=== PATIENT | male | born 1965 | race Caucasian/White ===

== ENCOUNTER → 2016-11-15 | Outpatient (CLI) | payer OTHER ==
[~2016-11-15] MED LIST: ACETAMINOPHEN-H1 TA2 PO; ASPIRIN EC325 MG PO; ASPIRIN325 MG PO; ATIVAN0.5 MG PO; BACTRIM DS 8001 TA1 PO; CARBIDOPA/LEVOD1 TA5 PO; CLINDAMYCIN HC300 MG PO; DILTIAZEM60 MG PO; LOPRESSOR100 M1 PO; METOPROLOL100 MG PO; METOPROLOL25 MG PO; METOPROLOL50 MG PO; NO HOME MEDS; PT DOES NOT KNOW; SERTRALINE HYDR25 MG PO; TYLENOL500 MG PO; VICODIN 5/500 505 MG PO; XARE15TA PO; XARELTO20 M1 PO; ZITHROMAX TRI-500 M1 PO; Zofran4 MG PO
[2016-11-15 16:19] LABS: HEMATOCRIT 53.2 % (42.0-52.0); HEMOGLOBIN 17.3 g/dl (14.0-18.0); MEAN CELL VOLUME 99.1 fl (80.0-94.0); MEAN CORPUSCULAR HGB 32.2 pg (27.0-31.0); MEAN CORPUSCULAR HGB CONC 32.5 g/dl (33.0-37.0); MEAN PLATELET VOLUME 9.3 fl (9.6-12.3); RED BLOOD COUNT 5.37 10*6/uL (4.50-5.90); RED CELL DISTRI WIDTH 14.3 % (0-14.5); WHITE BLOOD COUNT 8.8 10*3/uL (4.8-10.8)
== END | disposition home or self-care (01) ==
LOC: CARD 10-30 14:00 → LAB 15:42 → CARD 16:00
PROVIDERS: Internal Medicine
DX: I48.1 Persistent atrial fibrillation (principal); D75.1 Secondary polycythemia

== ENCOUNTER → 2016-12-17 | Outpatient (CLI) | payer OTHER | END | disposition home or self-care (01) | LOC: PHLEB 09:06 | DX: D75.1 Secondary polycythemia (principal) ==

== ENCOUNTER → 2017-01-30 | Outpatient (CLI) | payer OTHER ==
[2017-01-30 18:16] LABS: BASO # 0.1 10*3/uL (0.0-0.1); BASO % 0.6 % (0.0-1.0); EOS # 0.2 10*3/uL (0.0-0.4); EOS % 2.5 % (1.0-4.0); HEMATOCRIT 54.7 % (42.0-52.0); HEMOGLOBIN 17.5 g/dl (14.0-18.0); IG # 0.1 10*3/uL (0.0-0.1); LYMPH # 2.6 10*3/uL (1.3-4.4); LYMPH % 26.9 % (27.0-41.0); MEAN CELL VOLUME 98.9 fl (80.0-94.0); MEAN CORPUSCULAR HGB 31.6 pg (27.0-31.0); MEAN PLATELET VOLUME 9.2 fl (9.6-12.3); MONO # 1.2 10*3/uL (0.1-1.0); MONO % 12.4 % (3.0-9.0); NEUT # 5.4 10*3/uL (2.3-7.9); NEUT % 56.7 % (47.0-73.0); PLATELET COUNT AUTOMATED 222 10*3/uL (130-400); RED BLOOD COUNT 5.53 10*6/uL (4.50-5.90); RED CELL DISTRI WIDTH 15.7 % (0-14.5); WHITE BLOOD COUNT 9.6 10*3/uL (4.8-10.8)
[2017-01-30 18:31] LABS: ALBUMIN 3.5 gm/dl (3.1-4.5); ALKALINE PHOSPHATASE 74 U/L (45-117); BILIRUBIN, TOTAL 0.7 mg/dl (0.2-1.0); BUN 10 mg/dl (7-24); CARBON DIOXIDE 31 mmol/L (21-32); CHLORIDE 99 mmol/L (98-107); CHOLESTEROL 183 mg/dL (<200); EST GLOM FILT AFRICAN AMERICAN > 60 ml/min; GLUCOSE 81 mg/dL (65-99); HDL CHOLESTEROL 28 mg/dl (40-60); LDL CHOLESTEROL 117 mg/dL (9-159); POTASSIUM 3.7 mmol/L (3.5-5.1); SGOT/AST 33 IU/L (3-35); SGPT/ALT 43 U/L (12-78); SODIUM 136 mmol/L (136-145); TOTAL PROTEIN 7.7 gm/dL (6.4-8.2); TRIGLYCERIDES 192 mg/dl (<150); VLDL CHOLESTEROL 38 mg/dL (6-40)
== END ==
LOC: LAB 17:52
PROVIDERS: Internal Medicine
DX: I48.0 Paroxysmal atrial fibrillation (principal); G89.29 Other chronic pain; M54.5 Low back pain; R53.82 Chronic fatigue, unspecified; R21 Rash and other nonspecific skin eruption; D75.1 Secondary polycythemia

== ENCOUNTER → 2017-02-01 | Outpatient (CLI) | payer OTHER | LOC: PHLEB 01:42 | DX: D75.1 Secondary polycythemia (principal) ==

== ENCOUNTER → 2017-04-03 | Outpatient (CLI) | payer OTHER | END | disposition home or self-care (01) | LOC: PHLEB 04-02 10:30 | DX: D75.1 Secondary polycythemia (principal) ==

== ENCOUNTER → 2017-05-10 | Outpatient (CLI) | payer OTHER | END | disposition home or self-care (01) | LOC: PHLEB 10:00 | DX: D75.1 Secondary polycythemia (principal) ==